=== PATIENT | male | born 1960 | race Caucasian/White ===

== ENCOUNTER 2016-10-11 06:19 | Day surgery (SDC) | payer BC ==
[~2016-10-11] VITALS: Ht 180.3 cm; Wt 100.0 kg
[~2016-10-11 06:19] MED LIST: ASPI81TA82 PO; CARI1TAB34 PO; DILT31TA PO; FENO50TA PO; FERR65TA PO; METO200T3 PO
[2016-10-11 06:50] VITALS: BP 148/95; PULSE 63; RESP 20; TEMP 98; O2SAT 95
[2016-10-11] MEDS ORDERED: ROSU1TAB6 PO (06:55)
[2016-10-11] MEDS ORDERED: DILT30TA PO (06:55)
[2016-10-11] MEDS ORDERED: ENOX30P SQ (06:55)
[2016-10-11] MEDS ORDERED: METO200T3 PO (06:55)
[2016-10-11] MEDS ORDERED: WARF-58 PO (06:55)
[2016-10-11] MEDS ORDERED: DIAZEPAM 5 MG TAB PO SCH (07:00)
[2016-10-11] MEDS ORDERED: LACTATED RINGER'S 1000 ML INJ 1,000 ML IV SCH (07:00)
[2016-10-11 07:25] LABS: AUTOMATED NEUTROPHIL # 2.6 TH/MM3 (1.8-7.7); BASOPHIL % 0.8 % (0.0-2.0); EOSINOPHIL # 0.2 TH/MM3 (0-0.4); EOSINOPHIL % 3.4 % (0.0-4.0); HEMATOCRIT 42.3 % (39.0-51.0); HEMO FLAGS DIFF FINAL; LYMPH % 29.7 % (9.0-44.0); LYMPHOCYTE # 1.4 TH/MM3 (1.0-4.8); MEAN CELL VOLUME 91.1 FL (80.0-100.0); MEAN CORPUSCULAR HEMOGLOBIN 30.7 PG (27.0-34.0); MEAN CORPUSCULAR HGB CONC 33.6 % (32.0-36.0); MONO % 10.7 % (0.0-8.0); NEUT % 55.4 % (16.0-70.0); PLATELET COUNT 268 TH/MM3 (150-450); RED BLOOD COUNT 4.64 MIL/MM3 (4.50-5.90); RED CELL DISTRIBUTION WIDTH 14.6 % (11.6-17.2); WHITE BLOOD COUNT 4.6 TH/MM3 (4.0-11.0)
[2016-10-11 07:38] LABS: APTT (PATIENT) 26.3 SEC (24.3-30.1)
[2016-10-11 07:41] LABS: BICARBONATE 25.8 MEQ/L (21.0-32.0); POTASSIUM 4.5 MEQ/L (3.5-5.1)
[2016-10-11 10:05] VITALS: BP 141/74; PULSE 67; RESP 18; TEMP 97.5; O2SAT 97
--- NOTE | 2016-10-11 10:10 | PD.RAD ---
Post Procedure Progress Note Pre Procedure Diagnosis: (1) Cervical spinal stenosis (2) Cervical radiculitis Post Procedure Diagnosis: (1) Cervical radiculitis (2) Cervical spinal stenosis Procedure Date: Oct 11, 2016 Supervising Radiologist: Bubba Hernandez Anesthesia: Local Plan of Activity Patient to Unit: [facility] Patient Condition: Good Additional Comments: Myelogram completed. single puncture at L4 Spinal stenosis evident at L3/L4 above the fusion. Patient was to painful to tilt contrast to the neck. Pt placed on a stretcher and will wait [address] See PACS Report for procedural detail/treatment Bubba Hernandez MD Oct 11, 2016 10:10
[2016-10-11] MEDS ORDERED: ONDANSETRON HCL 4 MG/2 ML VIAL IV PRN (10:15)
[2016-10-11] MEDS ORDERED: IOHEXOL 300 MG/ML 50 ML BTL (for RAD DIAG) IT ONE (10:16)
[2016-10-11 11:16] VITALS: BP 156/92; PULSE 63; RESP 18; O2SAT 98
--- NOTE | 2016-10-11 12:01 | RADRPT ---
EXAM DATE/TIME: 10/11/2016 11:02 [facility] COMPARISON: CT CERVICAL SPINE W/O CONTRAST, October 11, 2016, 10:52. INDICATIONS : Post mylogram evaluate for spinal stenosis RADIATION DOSE: 38.46 CTDIvol (mGy) MEDICAL HISTORY : Hernia, inguinal. Hernia, umbilical. SURGICAL HISTORY : Lamaectomy ENCOUNTER: Initial ACUITY: 1 day PAIN SCALE: 0/10 LOCATION: Lumbar TECHNIQUE: Volumetric scanning of the lumbar spine was performed. Multiplanar reconstructions in the sagittal, coronal and oblique axial planes were performed. Using automated exposure control and adjustment of the mA and/or kV according to patient size, radiation dose was kept as low as reasonably achievable t o obtain optimal diagnostic quality images. FINDINGS: Sagittal and coronal reformats demonstrate adequate alignment of lumbar vertebral bodies. The patient is fused from C4 down to S1. The hardware is well-positioned. The fusion appears solid. There is a m otion segment at the L3/4 level. This will be further assessed by axial imaging. No destructive lesio n is identified. No acute fracture is seen. The exam does demonstrate degenerated disc at the T10/11 and T11/12 levels with a sizable broad-based disc bulges. These are only partially visualized on the sagittal and coronal images. T10-T11: There is a degenerated disc with a broad-based disc bulge. This effaces the ventral thecal sac. There is some mild effacement of the lateral recess and base of the foramina on the left. T11-T12: The examination demonstrates a small broad-based disc bulge. The thecal space is adequate. There is s ome mild encroachment of distal dural on the lateral recess and the base of the foramina bilaterally. T12-L1: The thecal sac has a normal diameter. No evidence of disc bulge or protrusion. The neural foramina are patent bilaterally. L1-L2: The thecal sac has a normal diameter. No evidence of disc bulge or protrusion. The neural foramina are patent bilaterally. L2-L3: There is a small broad-based disc bulge which effaces the ventral thecal sac. The residual thecal spa ce is adequate. The foramina appear adequate. L3-L4: There is a degenerated disc with broad-based disc protrusion and diffuse osteophytic ridging. There i s disc material evident effacing the ventral thecal sac and projecting into the lateral recess and ba se of the foramina bilaterally. There is facet arthritis with degenerative facet and ligamentous hype rtrophy. These changes combine to result in moderate to severe spinal stenosis at this level. L4-L5: This level is fused. The hardware is well-placed. The thecal space and foramina are adequate. L5-S1: This level is fused. The hardware is well-placed. The thecal space and foramina are adequate. CONCLUSION: 1. The patient is solidly fused from L4 down to S1. 2. There is a motion segment at the L3/4 level with degenerated disc, and diffuse disc protrusion and osteophytic ridging resulting in a moderate to severe spinal stenosis at this level. 3. Disc bulges at T10/11 and T11/12 as above. Bubba Hernandez MD on October 11, 2016 at 11:51 Board Certified Radiologist. This report was verified electronically.
[2016-10-11 13:46] VITALS: BP 153/92; PULSE 63; RESP 18; O2SAT 97
--- NOTE | 2016-10-11 14:44 | RADRPT ---
EXAM DATE/TIME: 10/11/2016 10:52 This report includes an Addendum and supersedes previous reports for this exam. [facility] COMPARISON: No previous studies available for comparison. INDICATIONS : Post myelogram evaluate for spinal stenosis. RADIATION DOSE: 23.23 CTDIvol (mGy) MEDICAL HISTORY : Hernia, inguinal. Hernia, umbilical. SURGICAL HISTORY : Laminectomy ENCOUNTER: Initial ACUITY: 1 day PAIN SCALE: 0/10 LOCATION: C-spine TECHNIQUE: Volumetric scanning of the cervical spine was performed. Multiplanar reconstructions i n the sagittal, coronal and oblique axial planes were performed. Using automated exposure control a nd adjustment of the mA and/or kV according to patient size, radiation dose was kept as low as reason ably achievable to obtain optimal diagnostic quality images. FINDINGS: Sagittal and coronal reconstructions show four-level anterior fixation from C4 through C7. Hardware appears to be intact. There are broad based disc bulges at C2-3 and C3-4 which encroac h on the anterior epidural space and abut up against the thecal sac. There is no cord compromise at a ny cervical level, however. Vertebral body heights are maintained without fracture or listhesis. De tailed axial images as follows: C2-C3: Broad based disc bulge. There is flattening of the anterior aspect of the thecal sac but th e spinal canal and neural foramina are patent. C3-C4: This is a superior motion segment with a broad based disc bulge encroaching on the anterior e pidural space and flattening the anterior aspect of the thecal sac. Spinal canal and neural foramina are patent. C4-C5: Anteriorly fixated level. Spinal canal and neural foramina are adequate. C5-C6: Anterior fixated level. Spinal canal and neural foramina are adequate. C6-C7: Anterior fixation. Spinal canal and neural foramina are adequate. C7-T1: Bilateral facet hypertrophy but the spinal canal and neural foramina are adequate. CONCLUSION: 1. Four-level anterior fixation from C4 through C7 with intervertebral disc prostheses. Hardware all appears to be intact. 2. There are broad based disc bulges and spurring at both C2-3 and C3-4. These encroach on the anter ior epidural space and flatten the anterior aspect of the thecal sac but there is no cord compromise at these or any remaining cervical levels. 3. In addition, the neural foramina appear to be adequate at all cervical levels without nerve root c ompromise. Sukumar Licona MD on October 11, 2016 at 14:27 Board Certified Radiologist. This report was verified electronically. ADDENDUM: Was asked to review the above by Dr. Krzysztof Hernández. In addition to the above, there are intervertebra l facet prostheses bilaterally at C4-5, C5-6 and C6-7, the same levels with anterior fixation. Dr. Rosina huerta was concern for possible fracture of the superior articulating facet of T1 on the left. Howalirioe r, this facet appears to be intact far laterally and I believe the apparent lucency represents a clef t or possible spur in the facet itself. No fracture identified. Sukumar Licona MD on October 18, 2016 at 10:04 Board Certified Radiologist. This report was verified electronically.
--- NOTE | 2016-10-11 15:54 | RADRPT ---
EXAM DATE/TIME: 10/11/2016 09:34 [facility] COMPARISON: CT CERVICAL SPINE W/O CONTRAST, October 11, 2016, 10:52. INDICATIONS : Patient with history of chronic low back pain in need of myelogram. MEDICAL HISTORY : HTN, Heart disease, High cholesterol, Endocarditis, Stroke, Cervical and lumbar spinal stenosis, Cerv ical and lumbar radiculopathy SURGICAL HISTORY : Heart valve replacement, Lumbar laminectomy L5-S1, Facetectomy and foraminotomy L5-S1, Spinal fusion, Interbody cages L4-L5 and L5-S1, Right posterior iliac crest bone graft, Anterior cervical decompres mookie and fusion at C4-5, C5-6, and C6-7 ENCOUNTER: Initial ACUITY: 4-6 months PAIN SCORE: 4/10 LOCATION: Right knee and neck LUMBAR PUNCTURE TIME: 0958 hours FLUORO TIME: 3.3 minutes IMAGE SERIES: 2 CONTRAST: 14 cc Omnipaque (iohexol) 300 ACCESS LEVEL: L4-5 PROCEDURE : 1. Fluoroscopic guided lumbar puncture. 2. Instillation of intrathecal contrast. 3. Lumbar myelogram. 4. Cervical myelogram. The risks, benefits and alternatives to the procedure were explained and verbal and written consent w as obtained. The site was prepped in sterile fashion. Full sterile technique was used, including ca p, mask, sterile gloves and gown and a large sterile sheet. Hand hygiene and 2% chlorhexidine and/or betadine/alcohol prep was utilized per protocol for cutaneous antisepsis. The skin and subcutaneous tissues were infiltrated with local anesthetic solution. With fluoroscopic guidance the lumbar thecal sac was punctured at level above and a diagnostic quanti ty of contrast is present in the subarachnoid space. Following the lumbar radiographs contrast was pl aced in the cervical region under fluoroscopic guidance. The patient tolerated procedure well and there were no complications. CT scan is to be performed for further evaluation. CONCLUSION: Uncomplicated lumbar and cervical myelogram as above. CT scan is to be performed for further evaluat ion. The exam does demonstrate spinal stenosis at the L3/4 level. The cervical spine was not well-vis ualized on the fluoroscopic images. Bubba Hernandez MD on October 11, 2016 at 15:52 Board Certified Radiologist. This report was verified electronically.
== END 2016-10-11 14:02 | disposition home or self-care (01) ==
LOC: HROP 06:19 → HRIP 06:20 → HROP 14:02
PROVIDERS: ATTEND Orthopaedic Surgery Orthopaedic Surgery of the Spine
DX: M48.02 Spinal stenosis, cervical region (principal); M54.12 Radiculopathy, cervical region; M48.06 Spinal stenosis, lumbar region; Z86.73 Personal history of transient ischemic attack (TIA), and cerebral infarction without residual deficits; I10 Essential (primary) hypertension; E78.00 Pure hypercholesterolemia, unspecified; Z95.2 Presence of prosthetic heart valve; Z79.01 Long term (current) use of anticoagulants
CPT/HCPCS: 62305; 72125; 72131; 80048; 85025; 85610; 85730; J7120; Q9967; 77003